=== PATIENT | male | born 1955 | race African-American/Black ===

== ENCOUNTER 2023-11-29 14:36 | Inpatient (IN) | payer MEDICARE, OTHER ==
[~2023-11-29] VITALS: Ht 175.3 cm; Wt 79.4 kg
[2023-11-29 15:25] LABS: BASOPHILS % 1.7 % (0.0-2.0); EOSINOPHILS % 1.1 % (0.0-5.0); HEMATOCRIT. 32.7 % (42.0-52.0); HEMOGLOBIN. 11.2 g/dL (14.0-18.0); LYMPHOCYTES % 37.8 % (20.0-50.0); MEAN CORPUSCULAR HEMOGLOBIN 27.5 pg (28.0-32.0); MEAN CORPUSCULAR HGB CONC 34.4 g/dL (31.0-37.0); MEAN CORPUSCULAR VOLUME 80.1 fL (80.0-94.0); MEAN PLATELET VOLUME 6.6 fl (7.4-10.4); MONOCYTES % 6.4 % (2.0-8.0); PLATELET 296 x1000/uL (130-400); RED BLOOD CELL COUNT 4.08 mill/uL (4.7-6.1); RED CELL DISTRIBUTION WIDTH 13.4 % (11.6-14.6); WHITE BLOOD COUNT 4.4 x1000/uL (4.5-11.0)
[2023-11-29 15:30] LABS: CHLORIDE 102 mEq/L (98-107); POTASSIUM 3.3 mEq/L (3.5-5.1); SODIUM 134 mEq/L (136-145)
[2023-11-29 15:31] LABS: CARBON DIOXIDE 23 mEq/L (21-32)
[2023-11-29 15:32] LABS: CALCIUM 9.7 mg/dL (8.7-10.4)
[2023-11-29 15:36] LABS: CREATININE 0.9 mg/dL (0.6-1.3); GLUCOSE 86 mg/dL (70-105)
[2023-11-29 15:37] LABS: ETHANOL BLOOD 228 mg/dL (<10); TROPONIN I HIGH SENSITIVITY 5 ng/L (3.0-53); UREA NITROGEN BLOOD 9 mg/dL (9-23)
[2023-11-29 15:38] LABS: ACETAMINOPHEN < 2 ug/mL (10-30); ALANINE AMINOTRANSFERASE 21 IU/L (10-49); ALBUMIN 4.1 g/dL (3.2-4.8); ASPARTATE AMINOTRANSFERASE 38 IU/L (<34)
[2023-11-29 15:39] LABS: BILIRUBIN DIRECT 0.2 mg/dL (<=3.0); BILIRUBIN TOTAL 0.4 mg/dL (0.1-1.0); PROTEIN TOTAL 9.2 g/dL (6.0-8.3)
[2023-11-29 19:09] LABS: TROPONIN I HIGH SENSITIVITY 7 ng/L (3.0-53)
[2023-11-29 22:00] VITALS: BP 159/99; PULSE 85; RESP 15; TEMP 98.2
[2023-11-29] MEDS ORDERED: ONDANSETRON HCL 4MG/2ML INJ IV PRN (22:30)
[2023-11-29] MEDS ORDERED: HYDRALAZINE HCL 10MG TABLET PO PRN (22:30)
[2023-11-29] MEDS ORDERED: NALOXONE HCL 0.4MG/ML VIAL IV PRN (22:45)
[2023-11-29 23:00] VITALS: BP 159/99; PULSE 81; RESP 22; TEMP 98
[2023-11-29] MEDS: HYDROCODONE/ACETAMINOPHEN 5/325MG TABLET PO PRN (23:18)
[2023-11-30] VITALS (11 sets, daily range): BP systolic 116–152; BP diastolic 76–103; PULSE 71–87; RESP 13–23; TEMP 96–98.7
[2023-11-30 04:55] LABS: HEMATOCRIT 33.2 % (42.0-52.0); HEMOGLOBIN 11.2 g/dL (14.0-18.0); MEAN CORPUSCULAR HEMOGLOBIN 27.4 pg (28.0-32.0); MEAN CORPUSCULAR HGB CONC 33.8 g/dL (31.0-37.0); MEAN CORPUSCULAR VOLUME 81.1 fL (80.0-94.0); PLATELET 293 x1000/uL (130-400); RED CELL DISTRIBUTION WIDTH 14.1 % (11.6-14.6); WHITE BLOOD COUNT 5.3 x1000/uL (4.5-11.0)
[2023-11-30 05:10] LABS: CARBON DIOXIDE 26 mEq/L (21-32); CHLORIDE 105 mEq/L (98-107); SODIUM 137 mEq/L (136-145)
[2023-11-30 05:11] LABS: CALCIUM 9.3 mg/dL (8.7-10.4)
[2023-11-30 05:16] LABS: GLUCOSE 92 mg/dL (70-105); UREA NITROGEN BLOOD 14 mg/dL (9-23)
[2023-11-30] MEDS: AMLODIPINE 10MG TABLET PO SCH (09:03)
[2023-11-30] MEDS: ENOXAPARIN 40MG/0.4ML SYR SUBCUT SCH (09:03)
[2023-11-30] MEDS: LOSARTAN 25 MG TABLET PO SCH (09:03)
[2023-11-30] MEDS: FLUTICASONE PROPIONATE 50MCG/SPRAY BOTTLE BOTHNSTRLS SCH (10:58)
[2023-11-30 12:01] LABS: CLARITY URINE CLEAR (CLEAR); COLOR URINE YELLOW (YELLOW); GLUCOSE URINE NEGATIVE (NEGATIVE); KETONES URINE NEGATIVE (NEGATIVE); LEUKOCYTE ESTERASE URINE NEGATIVE (NEGATIVE); NITRITE URINE NEGATIVE (NEGATIVE); OCCULT BLOOD URINE NEGATIVE (NEGATIVE); PH URINE 5.5 (4.5-8.0); PROTEIN URINE TRACE (NEGATIVE); SPECIFIC GRAVITY URINE 1.025 (1.005-1.030); UROBILINOGEN URINE 0.2 E.U./dL (0.2-1.0)
[2023-11-30] MEDS: THIAMINE HCL 100MG TABLET PO SCH (12:06)
[2023-11-30] MEDS: FOLIC ACID 1MG TABLET PO SCH (12:06)
[2023-11-30 12:17] LABS: HYALINE CASTS URINE 0-5 /lpf; MUCUS URINE 2+ /lpf (NONE/TRACE); SQUAMOUS EPITHELIAL CELL URINE 2+ /lpf (RARE/1+)
[2023-11-30 12:18] LABS: RBC URINE NONE SEEN /hpf (0-2)
[2023-11-30 12:19] LABS: BACTERIA URINE TRACE
[2023-11-30 12:32] LABS: *AMPHETAMINES SCREEN URINE NEGATIVE (NEGATIVE); *BARBITURATES SCREEN URINE NEGATIVE (NEGATIVE); *BENZODIAZEPINES SCREEN URINE NEGATIVE (NEGATIVE); *COCAINE SCREEN URINE PRESUMPTIVE POSITIVE (NEGATIVE); CANNABINOID URINE SCREEN NEGATIVE (NEGATIVE); ECSTASY MDMA SCREEN URINE NEGATIVE (NEGATIVE); METHADONE URINE SCREEN NEGATIVE (NEGATIVE); OPIATES URINE SCREEN PRESUMPTIVE POSITIVE (NEGATIVE); PHENCYCLIDINE URINE SCREEN NEGATIVE (NEGATIVE)
[2023-11-30] MEDS: ASPIRIN 81MG TABLET PO SCH (14:42)
[2023-11-30] MEDS: CLOPIDOGREL 75MG TABLET PO SCH (14:42)
[2023-11-30 17:19] LABS: VITAMIN B12 SERUM 390 pg/mL (211-911)
[2023-11-30] MEDS: ATORVASTATIN CALCIUM 40MG TABLET PO SCH (21:05)
[2023-11-30] MEDS: LIDOCAINE 5% PATCH TOP SCH (21:06)
[2023-11-30 21:15] LABS: AMMONIA 26 uMol/L (<32)
[2023-12-01] VITALS (13 sets, daily range): BP systolic 118–160; BP diastolic 76–100; PULSE 59–87; RESP 17–36; TEMP 97.7–98.4; O2SAT 98
[2023-12-01] MEDS ORDERED: ACETAMINOPHEN 325MG TABLET PO PRN (11:45)
[2023-12-01] MEDS ORDERED: ACETAMINOPHEN 650MG/20.3ML UDC PO PRN (11:45)
[2023-12-01] MEDS ORDERED: IPRATROPIUM/ALBUTEROL 0.5-3(2.5)MG/3ML NEB HHN SCH (12:00)
[2023-12-01] MEDS ORDERED: ASPI-1406 PO (12:58)
[2023-12-01] MEDS ORDERED: CLOP-31 PO (13:26)
[2023-12-01] MEDS ORDERED: ATOR80TA PO (13:27)
== END 2023-12-01 17:24 | disposition home or self-care (01) | DRG 812 ==
LOC: ER 15:37 → 5EST 16:32 → EDBEDREQTM 16:33 → EDBEDREQSVC 16:33 → EDBEDREQ 16:34 → 5EST 11-30 00:30
PROVIDERS: ADMIT Internal Medicine; ATTEND Internal Medicine
DX: T50.7X1A Poisoning by analeptics and opioid receptor antagonists, accidental (unintentional), initial encounter (principal); J96.00 Acute respiratory failure, unspecified whether with hypoxia or hypercapnia; G92.8 Other toxic encephalopathy; I44.1 Atrioventricular block, second degree; E87.1 Hypo-osmolality and hyponatremia; F10.129 Alcohol abuse with intoxication, unspecified; I10 Essential (primary) hypertension; J45.909 Unspecified asthma, uncomplicated; D64.9 Anemia, unspecified; E78.5 Hyperlipidemia, unspecified; I45.9 Conduction disorder, unspecified; E87.6 Hypokalemia; Z82.49 Family history of ischemic heart disease and other diseases of the circulatory system; Z82.3 Family history of stroke; Y92.89 Other specified places as the place of occurrence of the external cause
CPT/HCPCS: 36415; 71045; 80048; 80076; 80305; 80307; 80320; 80329; 81003; 82140; 82607; 84443; 84484; 85025; 85027; 93005; 93306; 99291; J1650; G0480